=== PATIENT | male | born 1960 | race Caucasian/White ===

== ENCOUNTER 2020-06-19 01:50 | Inpatient (IN) | payer BC, SELFPAY ==
[2020-06-19] VITALS (19 sets, daily range): BP systolic 115–172; BP diastolic 53–88; PULSE 79–112; RESP 16–35; TEMP 36.6–38.7; O2SAT 93–97; BMI 47.4
--- NOTE | ~2020-06-19 | XR_ITS ---
EXAMINATION: XR chest 2V EXAM DATE: 06/19/2020 04:03 INDICATION: Left-sided chest pain, cough and shortness of breath. TECHNIQUE: Frontal and lateral projections of the chest obtained and reviewed. Comparison is made to prior examination from 09/25/2019. FINDINGS: The lungs are clear. There are no pleural effusions. The cardiomediastinal silhouette is within normal limits. There is no pneumothorax suspected. The bones and soft tissues are unremarkab le. Trace fluid in the right minor fissure. IMPRESSION: No acute cardiopulmonary findings. Reviewed, dictated and finalized at location A.
--- NOTE | ~2020-06-19 | XR_ITS ---
EXAMINATION: XR abdomen obstructive series DATE: 06/19/2020 08:21 INDICATION: Abdominal pain. TECHNIQUE: Upright and supine views of the abdomen on 3 radiographs were obtained. COMPARISON: CT abdomen and pelvis 06/19/2020 FINDINGS: There are no dilated loops of bowel. There is a small volume of stool in the colon. There i s no urolithiasis. No free intraperitoneal gas. IMPRESSION: 1. Normal bowel gas pattern. Reviewed, dictated and finalized at location B.
--- NOTE | ~2020-06-19 | CT_ITS ---
EXAMINATION: CT abdomen pelvis wo con DATE: 06/19/2020 04:17 INDICATION: Right flank pain. TECHNIQUE: Computed tomography (CT) of the abdomen and pelvis was performed without intravenous contr ast. Automated exposure control and iterative reconstruction technique were employed. The dose-length product was 1235.62 mGy-cm. COMPARISON: Chest CT 09/26/2019 FINDINGS: The visualized portions of the lung bases demonstrate mild atelectasis. No pleural effusion . The heart size is normal. There are coronary artery calcifications. No pericardial effusion. There is diffuse hepatic steatosis. The gallbladder, spleen, pancreas, adrenal glands, and kidneys are norm al. There is mild diffuse bladder wall thickening, likely secondary to chronic outlet obstruction fro m the moderately enlarged prostate. There are bilateral inguinal hernias containing fat. There are no dilated loops of bowel. The appendix is normal. There are no pathologically enlarged lymph nodes. Th ere is no free intraperitoneal fluid. There is mild lumbar spondylosis. IMPRESSION: 1. Diffuse hepatic steatosis. 2. Mild diffuse bladder wall thickening, likely secondary to chronic outlet obstruction from the mode rately enlarged prostate. 3. Bilateral inguinal hernias containing fat. Reviewed, dictated and finalized at location B. IMPRESSION: 1. Diffuse hepatic steatosis. 2. Mild diffuse bladder wall thickening, likely secondary to chronic outlet obs truction from the moderately enlarged prostate. 3. Bilateral inguinal hernias containing fat.
[2020-06-19 02:26] LABS: Basophils Absolute Auto 0.1 K/mm3 (0.0-0.1); Basophils Percent Auto 0.3 % (0.2-1.2); Eosinophils Absolute Auto 0.1 K/mm3 (0-0.3); Eosinophils Percent Auto 0.2 % (0-4.4); Hematocrit 47.3 % (42.0-52.0); Hemoglobin 16.7 g/dL (14.0-18.0); Immature Granulocyte Absolute 0.21 K/mm3 (0.00-0.031); Immature Granulocyte Percent A 0.7 % (0-0.5); Lymphocytes Percent Auto 9.7 % (18.3-44.2); Mean Corpuscular HGB Conc 35.3 g/dl (32-36); Mean Corpuscular Hemoglobin 31.2 pg (26-34); Mean Corpuscular Volume 88.4 fl (80-100); Mean Platelet Volume 9.8 fl (7.4-10.4); Monocytes Absolute Auto 2.3 K/mm3 (0.1-0.6); Monocytes Percent Auto 7.8 % (2.6-8.5); Neutrophils Absolute Auto 24.4 K/mm3 (1.3-6.7); Neutrophils Percent Auto 81.3 % (45.5-73.1); Platelet Count Result 303 k/mm3 (150-375); Red Blood Count 5.35 M/mm3 (4.6-6.20); Red Cell Distribution Width 12.1 % (11.5-14.5)
[2020-06-19 02:33] LABS: Add Urine Microscopic? YES; Appearance Urine Cloudy (Clear); Bacteria Urine Trace /hpf; Bilirubin Urine Negative (Negative); Blood Urine 1+ (Negative); Color Urine Yellow (Yellow); Glucose Urine UA Negative (Negative); Ketones Urine Negative (Negative); Leukocyte Esterase Ur 3+ LEU/UL (Negative); Mucus Urine Rare /lpf; Nitrate Urine Positive (Negative); Protein Urine Negative (Negative); Specific Grav Ur 1.015 (1.001-1.035); Squamous Epithelial Cell Urine Rare /hpf (Few); Urobilinogen Urine Negative mg/dL (<2.0); WBC Clumps Urine Present /HPF; WBC Urine >75 /hpf
[2020-06-19 02:38] LABS: Alanine Aminotransferase 35 U/L (4-50); Albumin Level 4.7 g/dL (3.5-5.1); Alkaline Phosphatase 64 U/L (38-126); Anion Gap 11 mmol/L (8-16); Aspartate Amino Transferase 21 U/L (17-59); Bilirubin,Total 0.8 mg/dL (0.2-1.3); Blood Urea Nitrogen 13 mg/dL (9-20); Calcium 9.2 mg/dL (8.4-10.2); Carbon Dioxide 20 mmol/L (22-30); Chloride 104 mmol/L (98-107); Estimated CRCL calculation 93 ml/min; Estimated Glomerular Filt Rate > 60; Glucose 123 mg/dL (75-110); Sodium 135 mmol/L (137-145)
[2020-06-19 02:39] LABS: Lactic Acid Reflex 1.5 mmol/L (0.7-2.1)
--- NOTE | 2020-06-19 03:37 | ED.ABDPAIN ---
HPI - Abdominal Pain General Chief Complaint: Urogenital-Male Stated Complaint: abd pain, fever, burning urination Time Seen by Provider: 06/19/20 03:37 Source: patient and family Mode of arrival: wheelchair Limitations: no limitations History of Present Illness HPI narrative: Patient is a 60-year-old male who presents for evaluation of fever and right flank pain. Patient initially reported intermittent right flank pain starting 72 hours ago, now has progressed to severe, sharp flank pain that he describes as stabbing in nature with radiation into the right testicle. Patient reports dysuria without hematuria. No known history of kidney stone and no previous history of urinary tract infection. Patient reports fever, last dose of Tylenol was over 7 hours ago. Patient reports nausea without emesis. No recent sick contacts. He reports chronic cough with COPD, but no worsening cough production. Per , she states that when his fever was high he seemed to be hallucinating but since his fever has come down that has improved. Patient currently is acting at baseline. also states that he nearly passed out at home, losing his balance when trying to get to the refrigerator. She denies any head trauma or loss of consciousness. Related Data Home Medications Medication Instructions Recorded Confirmed naproxen 500 mg PO BID PRN 09/26/19 10/05/19 Allergies Allergy/AdvReac Type Severity Reaction Status Date / Time pineapple Allergy Swelling Verified 06/19/20 03:23 Review of Systems Review of Systems: Narrative: CONSTITUTIONAL: Reports fever and chills EYES: Denies visual changes, redness, or discharge. ENT: Denies rhinorrhea, congestion, sore throat, or otalgia. CARDIOVASCULAR: Denies chest pain, palpitations, or edema. RESPIRATORY: Denies cough or dyspnea. GASTROINTESTINAL: Patient reports right-sided abdominal pain, nausea, denies diarrhea GENITOURINARY: Reports dysuria, denies hematuria SKIN: Denies rash or itching. MUSCULOSKELETAL: Denies back pain, joint pain, or myalgia. NEUROLOGIC: Denies headache, numbness, or weakness. [facility] Family History Family History (Updated 09/26/19 @ 01:35 by Joanna Galloway RN) Father Acute myocardial infarction Colon cancer Mother Hypertension Other History of blood clots Social History Social History Smoking packs per day: 2.5 Smoking cigarettes per day: 50.0 Years smoked: 41 Smoking pack-years: 102.50 Smoking status: Current every day smoker Tobacco type: cigarettes Second hand tobacco smoke exposure: Yes Alcohol intake: current Drinks per week: 0 Substance use: never Additional occupation/education comments: Heavy labor, lifting, carrying, dismantling items Gender identity (if verbalized by the patient): Male Spiritual care concerns: No Agree to blood products: Yes Exam Narrative: Exam Narrative: GENERAL: Awake, alert, uncomfortable appearing HEAD: Normocephalic, atraumatic. EYES: PERRLA and EOMI. ENT: Nares clear, no rhinorrhea or epistaxis. Mucous membranes moist. NECK: Supple. CHEST: No respiratory distress, breathing even and non labored HEART: Tachycardic rate, sinus rhythm ABDOMEN:Non distended, tender in the right flank area, right lower quadrant and suprapubic area EXTREMITIES: Normal range of motion. No edema. SKIN: Warm, dry, no rash. NEURO:No focal deficits. Alert and oriented x3 Course Vital Signs Vital signs: Vital Signs Temperature 38.7 C H 06/19/20 01:53 Pulse Rate 112 H 06/19/20 01:53 Respiratory Rate 24 H 06/19/20 01:53 Blood Pressure 149/77 H 06/19/20 01:53 Pulse Oximetry 95 06/19/20 01:53 Temperature 37.3 C 06/19/20 05:36 Pulse Rate 99 06/19/20 05:36 Respiratory Rate 18 06/19/20 05:36 Blood Pressure 117/53 L 06/19/20 05:36 Pulse Oximetry 94 06/19/20 05:36 MDM - Abdominal Pain MDM Narrative Medical decision ajay
[2020-06-19 03:55] LABS: CRP 6.4 mg/dL (<1.0)
[2020-06-19] MEDS: SODIUM CHLORIDE 0.9% IV 3,200 ML/1,000 ML BAG 999 ML IV CONT ×3 (04:25→04:41)
[2020-06-19] MEDS: MORPHINE SULFATE 4 MG/ML INJ IV PUSH ×2 (04:29→06:34)
[2020-06-19] MEDS: ONDANSETRON INJ 4 MG/2 ML VIAL IV PUSH (04:29)
--- NOTE | 2020-06-19 04:41 | PC.NURSE ---
Pt received 3,200 ML IV
--- NOTE | 2020-06-19 06:44 | PC.NURSE ---
This patient, Liam Goodrich, was admitted to Medical Room 346-01. Patient/family oriented to hospital policies and general routines including ID bracelet, bed and alarms, visiting hours, pain management, procedures, bathroom and other care routines, personal items, smoking policy, room service/diet, and visiting hours. Valuables list has been completed. Information on how to activate the Rapid Response Team has been discussed. Patient/Family are encouraged to report perceived risks to care and to ask questions if they do not understand what they are told or what they should do.
[2020-06-19] MEDS: SODIUM CHLORIDE 0.9% IV 1,000 ML 125 ML IV CONT ×3 (07:03→23:27)
[2020-06-19 07:05] LABS: Glucose Point of Care 119 (65-105)
--- NOTE | 2020-06-19 07:42 | PM.IMHP ---
H&P: HPI History of Present Illness Date/Time: 06/19/20 07:42 Chief complaint: severe sepsis,uti,prostatitis Narrative: Date of visit 729 Liam Goodrich is a 60 year old male with history of COPD who presented to the emergency room with 2 day history abdominal pain nausea and the last day dysuria. He describes his pain to me is primarily periumbilical across his mid abdomen and feels distended. Last BM yesterday and no trouble voiding. Nausea without vomiting and has had fever. Emergency room his pain was primarily radiating flank pain. CT scan revealed no stones or free air and was admitted for probable pyelonephritis. [place] 359[address] [place] [address] with pneumonia in September 2019. no history of previous abdominal surgeries either and no melena hematochezia or hematemesis Review of Systems Review of Systems: Narrative: constitutionally said he has gained some weight over the last 6 months appetite has been fine Eye no double vision scotoma mouth no pharyngitis on angina pulmonary history of COPD diagnosed September 2019 when he was admitted with pneumonia CV unit no chest pain palpitation as per present illness muscle skeletal no particular joint discomfort integument no skin breakdown rashes neuropsych no seizures no syncope PMFSH Social History Social History (Updated 06/19/20 @ 07:52 by Wiley Em MD) Social History: 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 Smoking packs per day: 1 Smoking cigarettes per day: 20.0 Years smoked: 42 Smoking pack-years: 42.00 Smoking status: Current every day smoker Tobacco type: cigarettes Second hand tobacco smoke exposure: Yes Alcohol intake: current Drinks per week: 1 Substance use: never Additional occupation/education comments: Heavy labor, lifting, carrying, dismantling items Gender identity (if verbalized by the patient): Male Sexual Orientation (if Verbalized by the Patient): Straight or Heterosexual Spiritual care concerns: No Agree to blood products: Yes Meds Home Medications and Allergies Home Medications Medication Instructions Recorded Confirmed Type albuterol sulfate 1 inhalation INHALATION Q4-6H PRN 09/26/19 06/19/20 Rx #1 each Allergies Allergy/AdvReac Type Severity Reaction Status Date / Time pineapple Allergy Swelling Verified 06/19/20 03:23 Vital Signs Vital Signs - 24 hr 06/19/20 01:53 06/19/20 04:00 06/19/20 05:36 Temperature 38.7 C H 38.5 C H 37.3 C Pulse Rate 112 H 101 H 99 Respiratory Rate 24 H 18 18 Blood Pressure 149/77 H 172/79 H 117/53 L Pulse Oximetry 95 96 94 06/19/20 06:26 06/19/20 06:44 06/19/20 06:48 Temperature 37.0 C 36.6 C Pulse Rate 98 79 79 Respiratory Rate 17 20 Blood Pressure 132/88 130/71 Pulse Oximetry 97 93 06/19/20 07:33 Temperature Pulse Rate 80 Respiratory Rate 35 H Blood Pressure 147/64 H Pulse Oximetry 96 Exam Narrative: Exam Narrative: blood pressure 146/64 pulse is 86 respirations 26 per minute satting 100% on room air afebrile pupils equal reactive to light sclera anicteric mouth normal neck is supple no adenopathy thyromegaly carotid bruits lungs faint end expiratory wheezes CV regular rate rhythm slightly tacky no murmurs abdomen slightly distended obese marked tenderness throughout with decreased to absent bowel sounds and some guarding but no definite rebound extremities without edema distal pulses are 2+ and symmetrical neuro alert cooperative no focal deficits psych pleasant but obviously in some distress integument no rashes H&P: Results Labs Labs: Short CBC 06/19/20 Range/Units 02:18 WBC 30.0 H (4.5-10.0) K/mm3 Hgb 16.7 (14.0-18.0) g/dL Hct 47.3 (42.0-52.0) % Plt Count 303 (150-375) k/mm3 BMP 06/19/20 02:18 Sodium 135 L Potassium 4.0 Chloride 104 Carbon Dioxide 20 L BUN 13 Creatinine 0.90 Gl
[2020-06-19 08:00] LABS: Basophils Absolute Auto 0.1 K/mm3 (0.0-0.1); Basophils Percent Auto 0.3 % (0.2-1.2); Eosinophils Percent Auto 0.1 % (0-4.4); Hematocrit 42.2 % (42.0-52.0); Hemoglobin 14.6 g/dL (14.0-18.0); Immature Granulocyte Absolute 0.18 K/mm3 (0.00-0.031); Immature Granulocyte Percent A 0.7 % (0-0.5); Lymphocytes Absolute Auto 1.94 K/mm3 (0.9-3.2); Lymphocytes Percent Auto 7.5 % (18.3-44.2); Mean Corpuscular HGB Conc 34.6 g/dl (32-36); Mean Corpuscular Hemoglobin 31.2 pg (26-34); Mean Corpuscular Volume 90.2 fl (80-100); Monocytes Absolute Auto 2.1 K/mm3 (0.1-0.6); Monocytes Percent Auto 8.1 % (2.6-8.5); Neutrophils Absolute Auto 21.7 K/mm3 (1.3-6.7); Neutrophils Percent Auto 83.3 % (45.5-73.1); Platelet Count Result 236 k/mm3 (150-375); Red Blood Count 4.68 M/mm3 (4.6-6.20); Red Cell Distribution Width 12.3 % (11.5-14.5)
[2020-06-19 08:12] LABS: Lipase 26 U/L (23-300)
[2020-06-19] MEDS: IPRATROPIUM BR 0.02% INH SOLN 0.5 MG/2.5 ML VIAL INHALATION ×2 (14:48→19:25)
[2020-06-19] MEDS: ALBUTEROL SULFATE NEB 2.5 MG/0.5 ML INH 5 MG INHALATION ×2 (14:48→19:25)
[2020-06-19] MEDS: ACETAMINOPHEN 325 MG TABLET 650 MG PO (15:45)
[2020-06-20] VITALS (12 sets, daily range): BP systolic 119–145; BP diastolic 69–79; PULSE 72–83; RESP 16–18; TEMP 36.1–36.7; O2SAT 93–97
[2020-06-20] MEDS: IPRATROPIUM BR 0.02% INH SOLN 0.5 MG/2.5 ML VIAL INHALATION ×3 (02:27→19:51)
[2020-06-20] MEDS: ALBUTEROL SULFATE NEB 2.5 MG/0.5 ML INH 5 MG INHALATION ×3 (02:27→19:50)
[2020-06-20] MEDS: SODIUM CHLORIDE 0.9% IV 1,000 ML 125 ML IV CONT ×2 (05:53→15:04)
[2020-06-20 06:35] LABS: Basophils Absolute Auto 0.1 K/mm3 (0.0-0.1); Basophils Percent Auto 0.3 % (0.2-1.2); Eosinophils Percent Auto 0.2 % (0-4.4); Hematocrit 39.2 % (42.0-52.0); Hemoglobin 13.1 g/dL (14.0-18.0); Immature Granulocyte Absolute 0.21 K/mm3 (0.00-0.031); Immature Granulocyte Percent A 0.9 % (0-0.5); Lymphocytes Absolute Auto 2.27 K/mm3 (0.9-3.2); Lymphocytes Percent Auto 9.9 % (18.3-44.2); Mean Corpuscular HGB Conc 33.4 g/dl (32-36); Mean Corpuscular Hemoglobin 30.6 pg (26-34); Mean Corpuscular Volume 91.6 fl (80-100); Monocytes Absolute Auto 1.3 K/mm3 (0.1-0.6); Monocytes Percent Auto 5.5 % (2.6-8.5); Neutrophils Absolute Auto 19.1 K/mm3 (1.3-6.7); Neutrophils Percent Auto 83.2 % (45.5-73.1); Platelet Count Result 223 k/mm3 (150-375); Red Blood Count 4.28 M/mm3 (4.6-6.20); Red Cell Distribution Width 12.3 % (11.5-14.5); White Blood Count 22.9 K/mm3 (4.5-10.0)
[2020-06-20 06:52] LABS: Alanine Aminotransferase 28 U/L (4-50); Albumin Level 3.5 g/dL (3.5-5.1); Alkaline Phosphatase 56 U/L (38-126); Anion Gap 9 mmol/L (8-16); Aspartate Amino Transferase 17 U/L (17-59); Bilirubin,Total 0.4 mg/dL (0.2-1.3); Blood Urea Nitrogen 8 mg/dL (9-20); Calcium 8.4 mg/dL (8.4-10.2); Carbon Dioxide 23 mmol/L (22-30); Chloride 108 mmol/L (98-107); Estimated CRCL calculation 105 ml/min; Estimated Glomerular Filt Rate > 60; Glucose 117 mg/dL (75-110); Potassium 3.5 mmol/L (3.4-5.0); Sodium 140 mmol/L (137-145)
[2020-06-20] MEDS: POTASSIUM CHLORIDE 20 MEQ TABLET 40 MEQ PO (08:25)
--- NOTE | 2020-06-20 16:01 | PM.IMPN ---
Progress Note: A&P Assessment and Plan (1) Sepsis: Qualifiers: Sepsis acute organ dysfunction status: without acute organ dysfunction Sepsis type: sepsis due to unspecified organism Qualified Code(s): A41.9 - Sepsis, unspecified organism Code(s): A41.9 - Sepsis, unspecified organism Status: Acute Assessment and Plan: on the basis of the urinary tract infection. no evidence of obstruction or stone on CT. Cultured blood and pending, urine growing E coli sensitive to Zosyn (2) Acute UTI: Code(s): N39.0 - Urinary tract infection, site not specified Status: Acute Assessment and Plan: as above continue Zosyn and await final results of blood cultures (3) COPD (chronic obstructive pulmonary disease): Code(s): J44.9 - Chronic obstructive pulmonary disease, unspecified Status: Acute Assessment and Plan: schedule updrafts and doing well (4) DVT prophylaxis: Code(s): Z29.9 - Encounter for prophylactic measures, unspecified Status: Acute Assessment and Plan: Lovenox (5) Abdominal pain: Code(s): R10.9 - Unspecified abdominal pain Status: Acute Assessment and Plan: the abdominal pain seems more than would be expected with simple UTI. no free air seen on CT scan. Will check lipase, obstructive series, and follow closely. If no improvement soon then possible even surgical evaluation Subjective Date/time seen: 06/20/20 16:01 Interval history: Date of visit 06/20. 60-year-old white male with COPD admitted with sepsis dysuria and abdominal pain. CT abdomen was unremarkable and with hydration and IV antibiotics abdominal pain has subsided. He is feeling better and ate solid foods this a.m. and requesting to go home Exam Narrative: Exam Narrative: blood pressure 144/78 pulse is 78 respirations 18 per minute satting 100% on room air afebrile with T-max 37.8? pupils equal reactive to light sclera anicteric mouth normal neck is supple lungs clear today CV regular rate rhythm no murmurs abdomen soft and nontender with normal active bowel sounds extremities without edema distal pulses are 2+ and symmetrical neuro alert cooperative no focal deficits psych pleasant and appropriate integument no rashes Objective Data Vital Signs Vital Signs: Vital Signs - 24 hr 06/19/20 19:25 06/19/20 19:34 06/19/20 20:00 Temperature Pulse Rate 82 87 79 Respiratory Rate 20 20 Blood Pressure Pulse Oximetry 06/19/20 22:00 06/20/20 00:00 06/20/20 02:27 Temperature 37.2 C Pulse Rate 84 81 80 Respiratory Rate 20 18 Blood Pressure 125/70 Pulse Oximetry 94 06/20/20 02:34 06/20/20 04:00 06/20/20 06:00 Temperature 36.1 C L Pulse Rate 83 78 75 Respiratory Rate 18 18 Blood Pressure 119/69 Pulse Oximetry 93 06/20/20 08:00 06/20/20 14:20 06/20/20 15:14 Temperature 36.4 C L Pulse Rate 82 79 76 Respiratory Rate 18 16 18 Blood Pressure 144/79 H Pulse Oximetry 93 97 06/20/20 15:22 Temperature Pulse Rate 76 Respiratory Rate 18 Blood Pressure Pulse Oximetry Intake/Output Intake/Output: Intake & Output 06/17/20 06/18/20 06/19/20 06/20/20 23:59 23:59 23:59 23:59 Intake Total 7240 4260 Output Total 1800 Balance 7240 2460 Meds/Results Medications: Active Medications Generic Name Dose Route Start Last Admin Trade Name Freq PRN Reason Stop Dose Admin Acetaminophen 650 mg 06/19/20 05:35 06/19/20 15:45 Tylenol Tablet PO 650 mg Q4H PRN Administration Mild Pain (1-3) or Fever Albuterol 5 mg 06/19/20 08:00 06/20/20 15:14 Albuterol Sulf Neb 2.5mg/0.5ml INHALATION 5 mg Q6HRT MARILEE Administration Sodium Chloride 1,000 mls @ 125 mls/hr 06/19/20 05:35 06/20/20 15:04 Normal Saline Iv IV CONT 125 mls/hr .Q8H MARILEE Administration Piperacillin/Tazobactam/Dextrose 3.375 gm in 50 mls @ 100 mls/hr 06/19/20 12:00 06/20/20 12:48
[2020-06-20] MEDS: ACETAMINOPHEN 325 MG TABLET 650 MG PO (18:40)
[2020-06-20] MEDS: ENOXAPARIN 40 MG/0.4 ML SYRINGE SUB-Q (20:33)
[2020-06-21 06:02] VITALS: BP 163/96; PULSE 75; RESP 16; TEMP 36.6; O2SAT 94
[2020-06-21 06:30] LABS: Basophils Percent Auto 0.3 % (0.2-1.2); Eosinophils Absolute Auto 0.1 K/mm3 (0-0.3); Eosinophils Percent Auto 1.1 % (0-4.4); Hematocrit 38.9 % (42.0-52.0); Hemoglobin 13.4 g/dL (14.0-18.0); Immature Granulocyte Absolute 0.09 K/mm3 (0.00-0.031); Immature Granulocyte Percent A 0.8 % (0-0.5); Lymphocytes Absolute Auto 1.79 K/mm3 (0.9-3.2); Lymphocytes Percent Auto 15.1 % (18.3-44.2); Mean Corpuscular HGB Conc 34.4 g/dl (32-36); Mean Corpuscular Hemoglobin 31.1 pg (26-34); Mean Corpuscular Volume 90.3 fl (80-100); Mean Platelet Volume 10.1 fl (7.4-10.4); Monocytes Absolute Auto 0.7 K/mm3 (0.1-0.6); Monocytes Percent Auto 6.1 % (2.6-8.5); Neutrophils Absolute Auto 9.1 K/mm3 (1.3-6.7); Neutrophils Percent Auto 76.6 % (45.5-73.1); Platelet Count Result 232 k/mm3 (150-375); Red Blood Count 4.31 M/mm3 (4.6-6.20); Red Cell Distribution Width 12.3 % (11.5-14.5); White Blood Count 11.9 K/mm3 (4.5-10.0)
[2020-06-21 06:41] LABS: Anion Gap 6 mmol/L (8-16); Blood Urea Nitrogen 12 mg/dL (9-20); Calcium 8.6 mg/dL (8.4-10.2); Carbon Dioxide 21 mmol/L (22-30); Chloride 111 mmol/L (98-107); Estimated CRCL calculation 105 ml/min; Estimated Glomerular Filt Rate > 60; Glucose 107 mg/dL (75-110); Potassium 3.7 mmol/L (3.4-5.0); Sodium 138 mmol/L (137-145)
[2020-06-21 08:40] VITALS: PULSE 72; RESP 18
[2020-06-21] MEDS: ALBUTEROL SULFATE NEB 2.5 MG/0.5 ML INH 5 MG INHALATION (08:40)
[2020-06-21] MEDS: IPRATROPIUM BR 0.02% INH SOLN 0.5 MG/2.5 ML VIAL INHALATION (08:40)
[2020-06-21 08:50] VITALS: PULSE 75; RESP 18
[2020-06-21 09:20] VITALS: PULSE 78; RESP 16; O2SAT 94
--- NOTE | 2020-06-21 18:31 | PM.DS ---
DS: Admitting Diagnosis Admitting Diagnosis Admitting Diagnosis: severe sepsis,uti,prostatitis DS: Discharge Diagnosis Discharge Diagnosis (1) Sepsis: Qualifiers: Sepsis acute organ dysfunction status: without acute organ dysfunction Sepsis type: sepsis due to unspecified organism Qualified Code(s): A41.9 - Sepsis, unspecified organism Code(s): A41.9 - Sepsis, unspecified organism Status: Acute Assessment and Plan: on the basis of the urinary tract infection. no evidence of obstruction or stone on CT. Cultured blood negative, urine growing E coli sensitive to Zosyn which was on and will receive full 2 week course with oral Cipro 500 b.i.d. (2) Acute UTI: Code(s): N39.0 - Urinary tract infection, site not specified Status: Acute Assessment and Plan: as above continue Zosyn while inpatient and converted to Cipro 500 b.i.d. on discharge for full 2 week course (3) COPD (chronic obstructive pulmonary disease): Code(s): J44.9 - Chronic obstructive pulmonary disease, unspecified Status: Acute Assessment and Plan: schedule updrafts and doing well and will use his meter dose inhaler at home (4) DVT prophylaxis: Code(s): Z29.9 - Encounter for prophylactic measures, unspecified Status: Acute Assessment and Plan: Lovenox while inpatient (5) Abdominal pain: Code(s): R10.9 - Unspecified abdominal pain Status: Acute Assessment and Plan: the abdominal pain seems more than would be expected with simple UTI but with treatment of UTI symptoms all resolved. DS: Summary Hospital Course Hospital Course: 60-year-old white male with COPD admitted with sepsis and urinary tract infection abdominal pain and flank pain. CT of the abdomen showed no renal abnormalities only bilateral inguinal hernias and fatty infiltration liver. Flank and abdominal discomfort subsided as did nausea and vomiting. Urine grew E coli sensitive to all on the Gram-negative panel except ampicillin. blood cultures no growth. White blood cell count had fallen to 11,000 by discharge. he was tolerating diet well. He will finish a 2 week course with oral Cipro 500 b.i.d. and follow-up with primary care and/or urologist Time Spent with Patient Time attestation: Total time spent providing and/or coordinating discharge services: 35 minutes Exam Narrative: Exam Narrative: condition on discharge blood pressure 144/76 pulse is 84 afebrile lungs clear CV regular rate rhythm abdomen soft nontender sounds normal active extremities without edema neuro alert no focal deficits tolerated diet well DS: Data Data Completed and Pending Labs on day of discharge: Labs from last 24 hours 06/21/20 06/21/20 06:23 06:23 WBC 11.9 H RBC 4.31 L Hgb 13.4 L Hct 38.9 L MCV 90.3 MCH 31.1 MCHC 34.4 RDW 12.3 Plt Count 232 MPV 10.1 Immature Gran % (Auto) 0.8 H Neut % (Auto) 76.6 H Lymph % (Auto) 15.1 L [place] % (Auto) 6.1 Eos % (Auto) 1.1 Baso % (Auto) 0.3 Lymph # (Auto) 1.79 [place] # (Auto) 0.7 H Eos # (Auto) 0.1 Baso # (Auto) 0.0 Abs Immat Gran (auto) 0.09 H Absolute Neuts (auto) 9.1 H Absolute Nucleated RBC 0.0 Nucleated RBC % 0.0 Sodium 138 Potassium 3.7 Chloride 111 H Carbon Dioxide 21 L Anion Gap 6 L BUN 12 Creatinine 0.80 Estim Creat Clear Calc 105 Estimated GFR > 60 Glucose 107 Calcium 8.6 Preliminary micro results at discharge 06/19/20 03:17 Blood Culture - Preliminary Blood 06/19/20 03:22 Blood Culture - Preliminary Blood Discharge Plan Discharge Attending physician on discharge: Wiley Em Consulting providers: Rober Leung Discharging Clinician: Wiley Em Patient Disposition: Home, Self-Care Activity: as tolerated Diet: regular Patient Instructions: Antibiotic Form, Piperacillin/Tazobactam (By injecti
== END 2020-06-21 12:10 | disposition home or self-care (01) | DRG 872 ==
LOC: ANHED 05:37 → ANH3MED 08:51
PROVIDERS: Admitting Provider Internal Medicine; Emergency Provider Emergency Medicine; Visit Provider Internal Medicine
DX: A41.9 Sepsis, unspecified organism (principal); N39.0 Urinary tract infection, site not specified; F17.210 Nicotine dependence, cigarettes, uncomplicated; J44.9 Chronic obstructive pulmonary disease, unspecified; R10.9 Unspecified abdominal pain; Z79.899 Other long term (current) drug therapy
CPT/HCPCS: 36415; 71046; 74019; 74176; 80048; 80053; 81001; 83605; 83690; 85025; 86140; 87040; 87077; 87086; 87088; 87186; 94640; 96365; 96375; 99285; A9270; J0131; J0696; J1650; J2270; J2405; J2543; J7030; J7050

== ENCOUNTER 2021-04-26 10:54 | Emergency (ER) | payer BC, SELFPAY ==
[2021-04-26 11:01] VITALS: BP 185/108; PULSE 75; RESP 16; TEMP 36.5; O2SAT 98
--- NOTE | 2021-04-26 11:21 | ED.DENTAL ---
HPI - Dental/Oral General Chief complaint: Dental/Oral Stated complaint: Tooth Pain Time Seen by Provider: 04/26/21 11:09 Source: patient and RN notes reviewed Mode of arrival: ambulatory Limitations: no limitations History of Present Illness HPI Narrative: Patient presents today complaining of right upper dental pain x1+ weeks with facial swelling that started over the last several days that radiates to his ear. States he has an appointment set up in 4 days with his dentist but his sleep and eating has been affected due to pain over the last 2 days. Denies fever, shortness of breath, difficulty swallowing. States he needs several teeth pulled and implants placed. Currently rates his pain 9/10 and has been taking Advil and Tylenol without relief. MD Complaint: tooth pain Related Data Allergies Allergy/AdvReac Type Severity Reaction Status Date / Time pineapple Allergy Swelling Verified 06/19/20 03:23 Review of Systems Review of Systems: Narrative: CONSTITUTIONAL: Denies body aches, fever, chills, or sweats. EYES: Denies visual changes, redness, or discharge. ENT: Denies rhinorrhea, congestion, sore throat, or otalgia.+ Tooth pain and right facial swelling CARDIOVASCULAR: Denies chest pain, palpitations, or edema. RESPIRATORY: Denies cough or dyspnea. GASTROINTESTINAL: Denies abdominal pain, nausea, vomiting, or diarrhea. GENITOURINARY: Denies dysuria or hematuria. SKIN: Denies rash, itching, or wounds. MUSCULOSKELETAL: Denies back pain, joint pain, or myalgia. NEUROLOGIC: Denies headache, numbness, tingling, or weakness. PSYCH: Denies depression or anxiety. 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 Bronchitis COPD (chronic obstructive pulmonary disease) New diagnosis, will need PFTS after he recovers. 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 Smoking packs per day: 1 Smoking cigarettes per day: 20.0 Years smoked: 42 Smoking pack-years: 42.00 Smoking status: Current every day smoker Tobacco type: cigarettes Second hand tobacco smoke exposure: Yes Alcohol intake: current Drinks per week: 1 Substance use: never Additional occupation/education comments: Heavy labor, lifting, carrying, dismantling items Gender identity (if verbalized by the patient): Male Spiritual care concerns: No Agree to blood products: Yes Comments At time of signature, I have reviewed and agree with nursing past medical, surgical, social and family history unless otherwise noted. Please see nursing chart for further information. There is no relevant family history pertinent to the presenting complaint Exam Narrative: Exam Narrative: GENERAL: Well-appearing, well-nourished, and in no acute distress. HEAD: Normocephalic, atraumatic. EYES: EOMI. No redness or drainage. Conjunctivae normal. ENT: Mucous membranes pink and moist. Throat normal. Uvula midline. Tenderness along the gumline adjacent to the teeth 1 through 5. Gumline is mildly erythematous and edematous. No obvious periapical abscess noted. Mild swelling noted to the right upper jawline. NECK: Normal AROM. Supple. No lymphadenopathy. CHEST: No respiratory distress. Clear to auscultation. HEART: Regular rate and rhythm. No murmur appreciated. Normal peripheral pulses. EXTREM
== END 2021-04-26 11:26 | disposition home or self-care (01) ==
PROVIDERS: Emergency Provider Nurse Practitioner
DX: K04.7 Periapical abscess without sinus (principal); J44.9 Chronic obstructive pulmonary disease, unspecified
CPT/HCPCS: 99213; G0463

== ENCOUNTER 2022-10-04 12:27 | Emergency (ER) | payer BC, SELFPAY ==
[2022-10-04] VITALS (18 sets, daily range): BP systolic 107–158; BP diastolic 73–89; PULSE 77–108; RESP 15–20; TEMP 36.9–37.6; O2SAT 95–96
--- NOTE | ~2022-10-04 | CT_ITS ---
EXAMINATION: CT abdomen pelvis w con DATE: 10/04/2022 15:53 INDICATION: diffuse abdominal pain TECHNIQUE: Computed tomography (CT) of the abdomen and pelvis was performed with 100 mL Omnipaque-350 intravenous contrast. Automated exposure control and iterative reconstruction technique were employe d. The dose-length product was 1271.08 mGy-cm. COMPARISON: 06/19/2020. FINDINGS: Lower thorax: Aortic valve and coronary artery calcification Liver: Fatty infiltration Biliary/Gallbladder: Gallbladder is normal. No bile duct dilation. Pancreas: No mass or duct dilation. Spleen: Normal. Adrenals:No mass. Kidneys: No mass, stone, or hydronephrosis. GI tract: Mild distal esophageal and gastric wall edema. No small or large bowel dilation. Normal rudolph endix. Mesentery/Peritoneum: No ascites, mass, or free air. Retroperitoneum: No mass. Atherosclerotic abdominal aortic and/or arterial calcifications. Pelvis: Urinary bladder wall thickening, likely secondary to outlet compromise from prostatomegaly. Soft Tissues: Uncomplicated bilateral fat-containing inguinal hernias. Small fat-containing umbilical hernia. Bones: No acute osseous finding. IMPRESSION: No acute abdominopelvic process detected. Reviewed, dictated and finalized at location K. T LEADER
--- NOTE | ~2022-10-04 | XR_ITS ---
EXAMINATION: XR chest 2V DATE: 10/04/2022 13:22 INDICATION: Shortness of breath TECHNIQUE: PA and lateral views of the chest were obtained. COMPARISON: Chest radiograph dated 06/19/2020 FINDINGS: Oblique linear discoid atelectasis projecting across the right midlung zone. Mild streaky left basila r atelectasis. No other airspace opacities, pulmonary edema, pleural effusion or pneumothorax. Cardio mediastinal silhouette is normal. Mild thoracic spondylosis. IMPRESSION: 1. No acute cardiopulmonary disease. Reviewed, dictated and finalized at location A. REHENSIVE ADVISOR
--- NOTE | 2022-10-04 12:31 | ECG_ITS ---
Measurements Intervals [place] Rate: 104 P: 59 IA: 134 QRS: 97 QRSD: 123 T: 41 QT: 332 QTc: 438 Interpretive Statements SINUS TACHYCARDIA RIGHT BUNDLE BRANCH BLOCK [120+ ms QRS DURATION, UPRIGHT V1, 40+ ms S IN I/aVL/V4/V5/V6] ST DEPRESSION, CONSIDER S LATERAL ISCHEMIA COMPARED TO ECG 09/25/2019 20:25:41 RIGHT BUNDLE-BRANCH BLOCK NOW PRESENT Electronically Signed On 10-05-2022 8:19:32 [employer]CH[employer] HEL[employer] by Clarence Smith M.D.
[2022-10-04 13:16] LABS: Basophils Percent Auto 0.3 % (0.2-1.2); Eosinophils Percent Auto 0.2 % (0-4.4); Hematocrit 50.4 % (42.0-52.0); Hemoglobin 17.6 g/dL (14.0-18.0); Immature Granulocyte Absolute 0.07 K/mm3 (0.00-0.031); Immature Granulocyte Percent A 0.6 % (0-0.5); Lymphocytes Absolute Auto 1.12 K/mm3 (0.9-3.2); Lymphocytes Percent Auto 8.8 % (18.3-44.2); Mean Corpuscular HGB Conc 34.9 g/dl (32-36); Mean Corpuscular Hemoglobin 31.2 pg (26-34); Mean Corpuscular Volume 89.4 fl (80-100); Mean Platelet Volume 9.9 fl (7.4-10.4); Monocytes Absolute Auto 0.9 K/mm3 (0.1-0.6); Monocytes Percent Auto 6.8 % (2.6-8.5); Neutrophils Absolute Auto 10.6 K/mm3 (1.3-6.7); Neutrophils Percent Auto 83.3 % (45.5-73.1); Platelet Count Result 206 k/mm3 (150-375); Red Blood Count 5.64 M/mm3 (4.6-6.20); Red Cell Distribution Width 12.3 % (11.5-14.5); White Blood Count 12.7 K/mm3 (4.5-10.0)
[2022-10-04 13:47] LABS: Alanine Aminotransferase 39 U/L (6-50); Albumin Level 4.7 g/dL (3.5-5.1); Alkaline Phosphatase 67 U/L (38-126); Anion Gap 11 mmol/L (8-16); Aspartate Amino Transferase 34 U/L (17-59); Bilirubin,Total 0.4 mg/dL (0.2-1.3); Blood Urea Nitrogen 16 mg/dL (9-20); Carbon Dioxide 18 mmol/L (22-30); Chloride 104 mmol/L (98-107); Estimated CRCL calculation 92 ml/min; Estimated Glomerular Filt Rate > 60; Glucose 104 mg/dL (65-110); Potassium 3.9 mmol/L (3.4-5.0); Sodium 133 mmol/L (137-145)
[2022-10-04] MEDS: ONDANSETRON INJ 4 MG/2 ML VIAL IV PUSH (13:50)
[2022-10-04] MEDS: LACTATED RINGERS 1,000 ML 999 ML IV CONT (13:50)
[2022-10-04] MEDS: MORPHINE SULFATE (*CRX) 4 MG/ML INJ IV PUSH (13:50)
[2022-10-04 13:52] LABS: Influenza A QL RT-PCR Positive (Negative); Influenza B QL RT-PCR Negative (Negative); SARS-CoV-2 RNA PCR Negative
[2022-10-04 14:27] LABS: Alveolar/Arterial O2 Gradient 48.3 mmHg; Base Excess ABG -4.9 mEq/l (+/-2.0); Carboxyhemoglobin 0.9 % THb (0-2.0); Fractional Inspired Oxygen 21 %; HCO3 ABG 17.1 mEq/l (22.0-26.0); Methemoglobin ABG 0.5 %THb (0-1.5); Oxygen Content ABG 23.3 %vol (16.0-22.0); Oxyhemoglobin 92.8 % THb (90.0-100.0); PCO2 ABG 25.9 mmHg (35.0-45.0); PO2 ABG 70.4 mmHg (80.0-100.0); PO2 FiO2 Ratio Arterial Blood 3.35 %; Reduced Hemoglobin 5.8 %THb (0-5.0); Total Hemoglobin 17.9 g/dL (12.0-18.0); pH ABG 7.437 (7.350-7.450)
[2022-10-04 14:28] LABS: Appearance Urine Clear (Clear); Bilirubin Urine 1+ (Negative); Blood Urine 1+ (Negative); Color Urine Yellow (Yellow); Glucose Urine UA Negative (Negative); Ketones Urine 1+ mg/dL (Negative); Leukocyte Esterase Ur Trace LEU/UL (Negative); Nitrate Urine Negative (Negative); Protein Urine 1+ mg/dL (Negative); Urobilinogen Urine 0.2 mg/dL (<2.0); pH Urine 5.5 (5.0-9.0)
[2022-10-04 14:29] LABS: Modified Allen's Test Pass; Site Drawn RIGHT RADIAL
[2022-10-04 14:32] LABS: Mucus Urine Rare /lpf; RBC Urine 0-2 /hpf (0-2); Squamous Epithelial Cell Urine Occasional /hpf (Few)
[2022-10-04 14:33] LABS: Add Urine Microscopic? YES
[2022-10-04 14:34] LABS: INR 1.2; Prothrombin Time 14.7 Seconds (11.1-14.7)
[2022-10-04 14:35] LABS: Partial Thromboplastin Time 35.4 SECONDS (22.3-36.8)
[2022-10-04 14:36] LABS: Lactic Acid Reflex 1.2 mmol/L (0.7-2.0); Lipase 49 U/L (23-300); Magnesium 2.1 mg/dL (1.6-2.3)
[2022-10-04 14:47] LABS: NT Pro B Type Natriuretic Pept 42 pg/mL (5-100); Troponin I < 0.012 ng/mL (0.000-0.034)
--- NOTE | 2022-10-04 14:57 | ED.SOB ---
HPI - SOB/Dyspnea General Chief Complaint: Shortness of Breath/Dyspnea Stated Complaint: SOB Time Seen by Provider: 10/04/22 13:26 Source: patient, family, RN notes reviewed and old records reviewed Mode of arrival: ambulatory Limitations: no limitations History of Present Illness HPI Narrative: This is a 62 year old male with history of COPD who presents for evaluation of fever, cough, shortness of breath and dizziness. His symptoms started 1 week ago with cough and fever. He states he has been laying in bed most of the week so he is having lightheadedness with getting up and standing. He denies any syncope. He denies chest pain but he is having shortness of breath. HE has COPD but he does not use any medications for it. His states his breathing is acting up. PAtient also reports lower abdominal pain for 2 days that is worse with movement and coughing. 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 Bronchitis COPD (chronic obstructive pulmonary disease) New diagnosis, will need PFTS after he recovers. 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 Smoking packs per day: 1 Smoking cigarettes per day: 20.0 Years smoked: 42 Smoking pack-years: 42.00 Smoking status: Current every day smoker Tobacco type: cigarettes Second hand tobacco smoke exposure: Yes Alcohol intake: current Drinks per week: 1 Alcohol use details: Rare use, a few times a year Substance use: never Additional occupation/education comments: Heavy labor, lifting, carrying, dismantling items Gender identity (if verbalized by the patient): Male Sexual Orientation (if Verbalized by the Patient): Straight or Heterosexual Spiritual care concerns: No Agree to blood products: Yes Exam Const: General: ill appearing Nutritional Appearance: obese Orientation/consciousness: patient oriented x3 Other: restless HENMT: Head: normal to inspection Face and sinus: normal facial exam Mouth: Yes Normal oral and palatal mucosa present Teeth and gingiva: dentition normal Throat: posterior oropharynx normal and uvula midline Eyes: Conjunctivae: conjunctivae normal Pupils: Equal, round and reactive pupils present EOM: EOMs intact bilaterally Chest: Chest palpation & inspection: normal inspection of the chest Resp: Effort & Inspection: tachypneic and no use of accessory muscles Auscultation: clear to auscultation bilaterally, no rales and no rhonchi Cardio: Rate: tachycardic Rhythm: regular rhythm Heart sounds: no murmurs GI: GI Palp: Yes Soft to palpation, Yes Tenderness to palpation present (GI) (diffuse), No Guarding due to palpation present (GI), No Rigid due to palpation and No Hernia present Auscultation: normal bowel sounds Skin: General skin exam: normal color Rashes: no rashes Wounds: no wounds Neuro: General: patient oriented x3, moves all extremities and CN's II-XI intact bilaterally Speech: normal speech Other: patient has hypersensitivity to touch all over Extrem: General: normal to inspection Psych: Mental Status: mental status grossly normal Affect: Anxious affect present Attitude: cooperative Course Reevaluation(s) Reevalua
[2022-10-04] MEDS: ALBUTEROL SULFATE (*SP) AEROSOL 1 PUFF 4 PUFF INHALATION (15:58)
[2022-10-04] MEDS: OSELTAMIVIR PHOSPHATE 75 MG CAPSULE PO (17:24)
== END 2022-10-04 17:43 | disposition home or self-care (01) ==
PROVIDERS: Emergency Medicine; Emergency Provider General Practice
DX: J10.1 Influenza due to other identified influenza virus with other respiratory manifestations (principal); E86.0 Dehydration; N30.90 Cystitis, unspecified without hematuria; K29.70 Gastritis, unspecified, without bleeding; J44.9 Chronic obstructive pulmonary disease, unspecified; F17.210 Nicotine dependence, cigarettes, uncomplicated; Z20.822 Contact with and (suspected) exposure to COVID-19
CPT/HCPCS: 36415; 36600; 71046; 74177; 80053; 81001; 82375; 82805; 83050; 83605; 83690; 83735; 83880; 84484; 85025; 85610; 85730; 87040; 87636; 93005; 96361; 96365; 96375; 99284; A9270; J0131; J2270; J2405; J7120; Q9967